=== PATIENT | female | born 2000 | race Caucasian/White ===

== ENCOUNTER 2024-01-04 18:52 | Emergency (ER) | payer SELFPAY, OTHER ==
[2024-01-04] MEDS ORDERED: Acetaminophen 500 MG TAB ONE (19:24)
== END 2024-01-04 21:06 | disposition home or self-care (01) ==
LOC: ERS 18:52 → EDSEX 18:52 → ERS 21:06
DX: S63.501A Unspecified sprain of right wrist, initial encounter (principal); S20.219A Contusion of unspecified front wall of thorax, initial encounter; F17.210 Nicotine dependence, cigarettes, uncomplicated; V69.9XXA Occupant (driver) (passenger) of heavy transport vehicle injured in unspecified traffic accident, initial encounter; W22.11XA Striking against or struck by driver side automobile airbag, initial encounter
CPT/HCPCS: 29125; 71045; 93005; G0390

== ENCOUNTER 2024-01-07 19:01 | Emergency (ER) | payer OTHER, SELFPAY ==
[2024-01-07] MEDS ORDERED: Orphenadrine Citrate 60 MG/2 ML VIAL ONE (19:41)
[2024-01-07] MEDS ORDERED: Ketorolac Tromethamine 30 MG (1 mL) VIAL ONE (19:41)
== END 2024-01-07 20:42 | disposition home or self-care (01) ==
LOC: ERS 19:01
DX: S29.012A Strain of muscle and tendon of back wall of thorax, initial encounter (principal); F17.210 Nicotine dependence, cigarettes, uncomplicated; V49.9XXA Car occupant (driver) (passenger) injured in unspecified traffic accident, initial encounter
CPT/HCPCS: 72072; 96372; 99283; J1885; J2360